=== PATIENT | male | born 1995 | race Hispanic/Latino ===

== ENCOUNTER → 2017-11-08 08:35 | Outpatient (CLI) | payer OTHER, MEDICAID, SELFPAY ==
--- NOTE | 2017-11-08 | DI.MRI.S_ITS ---
PROCEDURE: MR KNEE LT WO CON INDICATIONS: SPRAIN OF LATERAL COLLATERAL LIGAMENT OF LEFT KNEE TECHNIQUE: Noncontrast sagittal PD fast spin echo and T2 fast spin echo with fat saturation, sagittal 3-D FLASH with fat saturation; coronal T1 spin echo and PD fast spin echo with fat saturation, and axial PD fast spin echo with fat saturation through the knee. COMPARISON: None. FINDINGS: Image quality: Excellent. Menisci: There is degenerative signal within the posterior horn of the medial meniscus which appears to extend to the inferior articular surface suggesting minimal degenerative tearing. The lateral meniscus appears intact. The meniscal root ligaments appear intact. Cruciate ligaments: The anterior cruciate ligament appears intact. The posterior cruciate ligament demonstrates mild attenuated signal proximally with slight thickening suggestive of a mild proximal sprain. The majority of the fibers appear intact. Medial structures: The medial collateral ligament appears intact. The semimembranosus tendon insertions and meniscocapsular junction appear intact. Visualized portions of the pes anserinus tendons appear intact without associated bursal fluid collections. Lateral structures: The fibular collateral ligament is slightly attenuated proximally at its origin which may reflect a mild sprain. The long and short heads of the biceps femoris tendon appear intact. The popliteus tendon appears intact. Iliotibial band demonstrates mild thickening with slight associated edema. Anterior structures: The quadriceps and patellar tendons appear intact. Patellar alignment is normal. No femoral trochlear dysplasia or ventral trochlear prominence. No edema in the infrapatellar fat pad. There is trace fluid in the deep infrapatellar bursa. Bones and cartilage: No bone marrow contusions or fractures. The cartilage of the medial and lateral femorotibial compartments, as well as the patellofemoral compartment, appears preserved in thickness without discrete defects. Joint space: There is physiologic knee joint fluid. No Sorto's cyst. Normal appearing synovial plicae are incidentally noted. IMPRESSION: 1. Mild thickening of the iliotibial band with minimal associated edema may reflect IT band friction syndrome in the appropriate clinical context. 2. Mild attenuation of the proximal fibular collateral ligament suggesting a minimal sprain. 3. Degenerative signal in the posterior horn of the medium meniscus extending to the inferior articular surface suggesting minimal degenerative tearing. Dictated by: Francisco García M.D. on 11/08/2017 at 10:53 Approved by: Francisco García M.D. on 11/08/2017 at 11:01
== END ==
PROVIDERS: PCP Nurse Practitioner Family; Visit Provider Orthopaedic Surgery
DX: S83.422A Sprain of lateral collateral ligament of left knee, initial encounter (principal)
CPT/HCPCS: 73721